=== PATIENT | male | born 1975 | race Caucasian/White ===

== ENCOUNTER 2016-11-05 18:53 | Emergency (ER) | payer OTHER | END 2016-11-05 21:00 | disposition home or self-care (01) | LOC: ER1 18:53 | DX: J02.0 Streptococcal pharyngitis (principal); I10 Essential (primary) hypertension; Z87.891 Personal history of nicotine dependence | CPT/HCPCS: 87040; 87081; 87880; 96372; 99283; J0561; J1100; J1885; J2540; Q0163 ==

== ENCOUNTER 2021-07-10 07:46 | Emergency (ER) | payer OTHER ==
[~2021-07-10] VITALS: Ht 170.2 cm; Wt 81.6 kg
[2021-07-10 09:01] LABS: HEMOGLOBIN 14.1 gm/dl (14.0-17.5); RED BLOOD COUNT 4.81 M/UL (4.20-5.50); WHITE BLOOD COUNT 7.9 K/UL (4.5-11.0)
[2021-07-10 09:32] LABS: BUN/CREATININE RATIO 8 (0-10)
== END 2021-07-10 13:55 | disposition home or self-care (01) ==
LOC: ER1 07:46
PROVIDERS: Family Medicine
DX: U07.1 COVID-19 (principal); I25.10 Atherosclerotic heart disease of native coronary artery without angina pectoris; F19.10 Other psychoactive substance abuse, uncomplicated
CPT/HCPCS: 71045; 80053; 82550; 82553; 83605; 83874; 84484; 85025; 86140; 93005; 99285; J7030; U0002